=== PATIENT | male | born 1960 | race Caucasian/White ===

== ENCOUNTER → 2020-09-07 11:39 | Outpatient (BNVA) | payer MEDICAID, SELFPAY | PROVIDERS: Visit Provider Family Medicine | DX: R41.3 Other amnesia (principal); F63.81 Intermittent explosive disorder; F41.9 Anxiety disorder, unspecified; F20.0 Paranoid schizophrenia; F32.9 Major depressive disorder, single episode, unspecified | CPT/HCPCS: 80053; 80061; 82607; 82746; 83735; 84443; 85025; 86592 ==

== ENCOUNTER 2022-04-20 10:47 | Outpatient (CLI) | payer MEDICAID, SELFPAY ==
--- NOTE | 2022-04-20 10:45 | CT_ITS ---
WS: [id number] LDCT LUNG CANCER SCREENING TECHNIQUE: Noncontrast CT of the chest with coronal and sagittal reformatted images. CLINICAL INFORMATION: Z12.2 - Encounter for screening for malignant neoplasm of.. COMPARISON: None. DLP: 80.21 mGy.cm DIvol: Mean CTDIvol: 1.60 (mGy) All CT scans at [facility] use at least one of these dose optimization techniques: automat ed exposure control; mA and/or kV adjustment per patient size (includes targeted exams where dose is matched to clinical indication); or iterative reconstruction. FINDINGS: Mild chronic emphysematous changes. Noncalcified subpleural opacity RIGHT upper lobe measur ing 5 mm. Noncalcified nodule RIGHT upper lobe measuring 3 mm. A few additional 4 to 5 mm noncalcifie d nodules RIGHT lower lobe laterally. Calcified granuloma LEFT lower lobe. Hazy airspace opacity in the RIGHT lower lobe superior segment posteriorly measuring 2.8 x 2.6 cm. Th is may be infectious or inflammatory in etiology but neoplasm is an additional consideration. Recomme nd short-term interval follow-up after treatment and if persistent consider further evaluation with P ET/CT or CT-guided biopsy. Normal caliber thoracic aorta. Mild aortic calcification. No mediastinal or hilar lymphadenopathy. Ca lcified LEFT hilar lymph nodes. Coronary calcification. No axillary lymphadenopathy. Adrenal glands are normal. Normal GE junction. Mild thoracic kyphosis. M ild disc space narrowing in the thoracic spine. CT/CT lung screening [id number] IMPRESSION:Hazy airspace opacity in the RIGHT lower lobe superior segment poste riorly measuring 2.8 x 2.6 cm. This may be infectious or inflammatory in etiolo gy but neoplasm is an additional consideration. Recommend short-term interval f ollow-up after treatment and if persistent consider further evaluation with PET /CT or CT-guided biopsy. LUNG-RADS: 4B-Suspicious FOLLOW UP: 1 Month LDCT
== END 2022-04-20 10:48 | disposition home or self-care (01) ==
PROVIDERS: PCP Family Medicine; Visit Provider Family Medicine
DX: Z12.2 Encounter for screening for malignant neoplasm of respiratory organs (principal); F17.210 Nicotine dependence, cigarettes, uncomplicated
CPT/HCPCS: 71271

== ENCOUNTER → 2022-06-21 15:22 | Outpatient (BNVA) | payer MEDICAID, SELFPAY | PROVIDERS: PCP Family Medicine; Visit Provider Nurse Practitioner | DX: N39.0 Urinary tract infection, site not specified (principal); F17.200 Nicotine dependence, unspecified, uncomplicated | CPT/HCPCS: 87077; 87086; 87184 ==

== ENCOUNTER 2022-07-18 17:28 | Outpatient (CLI) | payer MEDICAID, SELFPAY ==
--- NOTE | 2022-07-18 17:00 | CT_ITS ---
WS: [id number] CT CHEST TECHNIQUE: Noncontrast CT of the chest with coronal and sagittal reformatted images. CLINICAL INFORMATION: R91.8 - Other nonspecific abnormal finding of lung field COMPARISON: CT lung screening April 20, 2022 DLP: 564.[address] scans at [facility] use at least one of these dose optimization techniques: automated e xposure control; mA and/or kV adjustment per patient size (includes targeted exams where dose is matc hed to clinical indication); or iterative reconstruction. FINDINGS: Previously described patchy airspace opacity in RIGHT lower lobe has resolved compared to April 20 compatible with resolved infectious or inflammatory etiology. No focal pneumonia or pleural fluid today. Lungs well aerated. A few calcified granulomas. Normal caliber thoracic aorta. Mild aortic jaden cification. Coronary calcification. No mediastinal or hilar lymphadenopathy. No axillary lymphadenopa thy. A few tiny noncalcified 3 to 4 mm parenchymal and subpleural nodules in the RIGHT upper lobe, RIGHT l ower lobe, LEFT lower lobe stable compared to previous. Recommend 12 month follow-up. Adrenal glands are normal. Normal GE junction. Mild thoracic kyphosis. Chronic anterior wedging in th e mid thoracic spine. No other suspicious findings. CT/CT chest wo con [id number] IMPRESSION: 1. Interval resolution of previously described airspace opacity RIGHT lower lo be consistent with resolved infectious or inflammatory etiology. 2. No focal pneumonia or pleural fluid. 3. A few tiny subcentimeter noncalcified pulmonary nodules and subpleural pulm onary nodules appear stable since the prior CT. Recommend 12 month follow-up.
== END 2022-07-18 17:29 | disposition home or self-care (01) ==
LOC: RAD 17:29
PROVIDERS: PCP Family Medicine; Visit Provider Family Medicine
DX: R91.8 Other nonspecific abnormal finding of lung field (principal)
CPT/HCPCS: 71250

== ENCOUNTER → 2022-08-23 16:27 | Outpatient (BNVA) | payer MEDICAID, SELFPAY | PROVIDERS: PCP Family Medicine; Visit Provider Family Medicine | DX: Z87.440 Personal history of urinary (tract) infections (principal); R91.8 Other nonspecific abnormal finding of lung field | CPT/HCPCS: 80053; 80061; 81000; 83036; 84443; 85025; 86140; 86160; 86162; 86235; 86255; 86376; 87077; 87086; 87184; G0103 ==

== ENCOUNTER → 2022-10-13 14:40 | Outpatient (BNVA) | payer MEDICAID, SELFPAY | PROVIDERS: PCP Family Medicine; Visit Provider Internal Medicine Pulmonary Disease | DX: R91.8 Other nonspecific abnormal finding of lung field (principal); F17.210 Nicotine dependence, cigarettes, uncomplicated; R06.2 Wheezing | CPT/HCPCS: 99214 ==

== ENCOUNTER → 2022-12-09 09:58 | Outpatient (BNVA) | payer MEDICAID, SELFPAY | PROVIDERS: PCP Family Medicine; Visit Provider Urology | DX: N40.1 Benign prostatic hyperplasia with lower urinary tract symptoms (principal); N39.0 Urinary tract infection, site not specified | CPT/HCPCS: 51798; 52000; 87077; 87086; 87186; 99204 ==

== ENCOUNTER 2023-04-03 10:59 | Outpatient (CLI) | payer MEDICAID, SELFPAY ==
[2023-04-03 11:45] LABS: Prostate Specific AG Urology 2.14 ng/mL (0-4)
== END 2023-04-03 11:00 | disposition home or self-care (01) ==
PROVIDERS: PCP Family Medicine; Visit Provider Urology
DX: R97.20 Elevated prostate specific antigen [PSA] (principal); N40.0 Benign prostatic hyperplasia without lower urinary tract symptoms; N39.0 Urinary tract infection, site not specified; F20.0 Paranoid schizophrenia
CPT/HCPCS: 36415; 51741; 51798; 81003; 84153; 99213

== ENCOUNTER 2023-08-25 14:16 | Outpatient (CLI) | payer MEDICARE, MEDICAID, SELFPAY ==
--- NOTE | 2023-08-25 | CT_ITS ---
WS: [id number] LDCT LUNG CANCER SCREENING HISTORY: lung screening TECHNIQUE: Axial imaging performed from the apices to 1 cm below the costophrenic angles. Coronal and sagittal reformats are submitted with axial MIP series. All CT scans at [facility] use at least one of these dose optimization techniques: automated exposure control; mA and/or kV adjustment per patient size (includes targeted exams where dose is matched to clinical indication); or iterativ e reconstruction. DLP: 54.01 mGy.cm DIvol: Mean CTDIvol: 1.00 (mGy) COMPARISON: 07/18/2022 Diagnostic quality: Satisfactory Lungs: There are a few small micronodules bilaterally. Mild interstitial thickening. No mass or nodul e greater than 3 mm. Benign granuloma LEFT upper lobe. No endobronchial lesions. Heart: Normal size heart with no pericardial effusion.. Other findings: Calcified LEFT hilar lymph nodes. No mediastinal or hilar adenopathy. Mild atheroscle rosis aorta. Small hiatal hernia. Mild increase in thoracic kyphosis. Mild anterior wedging in the mi dthoracic spine. IMPRESSION: CT/CT lung screening [id number] LUNG-RADS: 2-Benign Appearance or Behavior FOLLOW UP: 12 Month: Continue annual screening with LDCT OTHER FINDINGS (S MODIFIER): None.
== END 2023-08-25 14:17 | disposition home or self-care (01) ==
LOC: RAD 14:18
PROVIDERS: PCP Family Medicine; Visit Provider Internal Medicine Pulmonary Disease
DX: Z12.2 Encounter for screening for malignant neoplasm of respiratory organs (principal); F17.210 Nicotine dependence, cigarettes, uncomplicated
CPT/HCPCS: 71271

== ENCOUNTER 2023-11-04 16:50 | Emergency (ER) | payer MEDICARE, MEDICAID, SELFPAY ==
[2023-11-04 16:55] VITALS: BP 131/72; PULSE 71; RESP 15; O2SAT 100
--- NOTE | 2023-11-04 17:46 | ED_ITS ---
HPI - Eye Problem General: Chief complaint: Eye Problems Stated complaint: urgent care sent, right eye issue Time Seen by Provider: 11/04/23 17:21 Source: patient Mode of arrival: ambulatory Limitations: no limitations History of Present Illness: Patient presents emergency department today for evaluation and treatment of right eye redness, tearing, and headache. Patient was sent by urgent care for w hat I assume is his complaint of pain however as patient has no redness or swelling around the orbit and patient's pain is located between his eyes and his forehead and in his maxillary sinuses I am not concerned about orbital, cellulitis erysipelas, etc. today. Patient states he has had a lot of congestion recently and has had increased sinus pressure. Over the last 3 days he has developed redness to his right eye. 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 He denies matting of the lashes. He also denies any fevers, sore throat, or vesicular rash formation. He denies any foreign body sensation in the eye. Review of Systems General: Reports: 10 or more systems reviewed and unremarkable except in HPI and below PFSH ED PFSH: Medical History BPH loc w urin obs/LUTS Family history of coronary artery disease Brain aneurysm Surgical History Status post brain surgery Family History Father , AT AGE 86 Stroke Mother , AT AGE 82 No problems noted. Other CAD (coronary artery disease) Cancer Diabetes Hyperlipidemia Hypertension Social History Smoking and tobacco/nicotine status: current some day tobacco/nicotine user cigarettes Packs smoked per day: 2 Years cigarettes smoked: 48 [ Other cigarette details: started at age 14] Alcohol intake: current Alcohol intake frequency: holidays/special occasions only Substance/Drug Use: current Marital status: Current occupational status: disabled Physical Exam Const: COMMON NORMALS: no acute distress, patient oriented x3 and alert OTHER: Patient is pleasant, social. Answers his own history. HENMT: OTHER: Nasal passages are erythematous and boggy bilaterally. Patient is tender along the maxillary sinuses as well as the frontal sinuses when palpated. Patient has bilateral allergic shiners. Eye: COMMON NORMALS: EOMs intact bilaterally OTHER: Patient with moderately injected conjunctive on the right side. Patient with active clear tearing but no signs of any matting or accumulation. Patient has a very minimal edema of the right upper eyelid with very minimal redness. Patient has no orbital cellulitis or swelling. EOMs are intact. No signs of any foreign body on the cornea or in the upper or lower lids. No signs of internal stye. No external stye. Neck/C-Spine: COMMON NORMALS: no JVD Lymph: LYMPHATIC: no lymphadenopathy noted Resp: COMMON NORMALS: normal respiratory effort, No retractions and No use of accessory muscles Cardio: COMMON NORMALS: no JVD and regular rate RATE: regular rate : COMMON NORMALS: Yes no CVA tenderness BLADDER/KIDNEY EXAM: Yes no CVA tenderness Back/Pelvis: COMMON NORMALS: no CVA tenderness, thoracic and lumbar spine normal to inspection and thoraco-lumbar ROM normal Extremity: COMMON NORMALS: normal to inspection, full ROM and no pedal edema Neuro: COMMON NORMALS: patient oriented x3 SENSORIUM/ORIENTATION: Yes alert Skin: COMMON NORMALS: no rashes or lesions noted and turgor normal GENERAL SKIN EXAM: no rashes or lesions noted and turgor normal Course Vital Signs: Vital signs: Vital Signs Pulse Rate 71 11/04/23 18:19 Respiratory Rate 15 11/04/23 18:19 Blood Pressure 131/72 11/04/23 18:19 Pulse Oximetry 100 11/04/23 18:19 Oxygen Delivery Me thod Room Air 11/04/23 16:55 MDM - Eye Problem Medical Decision Making Patient's examination today is consistent with a frontal and maxillary sinusiti s. Patient also has findings of a right-sided conjunctivitis. Patient reports chronic vision loss as a baby in the right eye. He shows no signs of an orbital cellulitis or erysipelas. We will treat patient with doxycycline for sinusitis and ciprofloxacin drops for the eye. Doxy will also give a skin coverage just in case. Went over return precautions and recommended a follow-up appoint with primary care next week for general recheck. Patient verbalizes understanding and agreement to treatment plan. Differential Diagnosis Likely conjunctivitis; Unlikely corneal abrasion, acute iritis, hyphema, periorbital cellulitis, subconjunctival hemorrhage, glaucoma, corneal ulcer or ruptured globe No radiology studies performed this visit Discharge Plan Discharge Patient Disposition: Home Clinical Impression: Sinusitis, Acute conjunctivitis, right eye Condition: Stable Prescriptions: New doxycycline hyclate 100 mg tablet 100 mg PO BID 10 Days Qty: 20 0RF ciprofloxacin HCl 0.3 % drops See Rx Instructions ophthalmic (eye) .COMPLEX Qty: 5 0RF Rx Instructions: put 1-2 drps in affected eye(s) every 2hr up to 8 times/day x2days; then 4 times/day x5days No Action albuterol sulfate 90 mcg/actuation HFA aerosol inhaler 1 inh INHALATION QID PRN (Reason: shortness of breath or wheezing) Qty: 18 0RF multivitamin Capsule 1 cap PO DAILY aspirin 81 mg tablet,delayed release (DR/EC) 81 mg PO DAILY 90 Days Qty: 90 1RF Spiriva with HandiHaler 18 mcg capsule, w/inhalation device 1 cap inhalation DAILY Qty: 30 3RF Rx Instructions: puncture 1 cap using device; one dose = 2 inhalations tamsulosin 0.4 mg capsule 0.4 mg PO .Twice daily Qty: 180 3RF finasteride 5 mg tablet 5 mg PO QDAY Qty: 90 3RF mupirocin 2 % ointment 1 applic topical BID 7 Days Qty: 22 0RF donepezil 10 mg tablet See Rx Instructions .ROUTE .COMPLEX Qty: 90 1RF Dose Instruction: TAKE 1 TABLET BY MOUTH DAILY Rx Instructions: TAKE 1 TABLET BY MOUTH DAILY fluoxetine 20 mg capsule See Rx Instructions .ROUTE .COMPLEX Qty: 30 0RF Dose Instruction: TAKE 1 CAPSULE BY MOUTH DAILY Rx Instructions: TAKE 1 CAPSULE BY MOUTH DAILY PT MUST MAKE AN APPOINTMENT FOR ADDITIONAL REFILLS. atorvastatin 20 mg tablet See Rx Instructions .ROUTE .COMPLEX Qty: 90 0RF Dose Instruction: TAKE 1 TABLET BY MOUTH DAILY Rx Instructions: TAKE 1 TABLET BY MOUTH DAILY Discharge Orders: Discharge ED (Routine); Ordered 11/04/23 Ordered By: Ana Ng Referrals: Robert Shine MD [Primary Care Provider] - Discharge Diet: Usual diet Discharge Activity: Increase activity as tolerated Patient Instructions: Conjunctivitis (ED), Sinusitis - Acute Activity Restrictions/Additional Instructions: Examination today seems consistent with maxillary and frontal sinus infections. I also think this is causing issues with your right eye as you do have signs of conjunctivitis. Unfortunately, treatment of 1 does not treat the other so, you will get eyedrops for your eye and an oral antibiotic for your sinus infection. We provided first doses here in the emergency department. If you are able to continue your treatment with your eyedrops without running out, that is fine but, if you run out of eyedrops before your treatment course is completed I have also sent a refill to the pharmacy to be picked up as needed. Put 1 to 2 drops in your right eye every 2 hours-up to 8 times a day, for 2 days. After that, apply 1 to 2 drops 4 times a day for 5 more days. Follow-up with primary care next week for general recheck if needed. Watch for any redness or swelling around your eye, fever, or severe right-sided headache. If any of these occur you need to be seen and reevaluated. Coding Level of Care Code ED Managed Care Analyst for [facility] Nunez
[2023-11-04] MEDS: doxycycline 100 mg Tablet PO (18:07)
[2023-11-04] MEDS: ciprofloxacin 0.3% Op Soln 2.5 mL Btl 1 DROP EYE-RIGHT (18:07)
[2023-11-04 18:19] VITALS: BP 131/72; PULSE 71; RESP 15; O2SAT 100
== END 2023-11-04 18:20 | disposition home or self-care (01) ==
PROVIDERS: Emergency Provider Physician Assistant; PCP Family Medicine
DX: J32.9 Chronic sinusitis, unspecified (principal); H10.31 Unspecified acute conjunctivitis, right eye; Z79.82 Long term (current) use of aspirin; Z72.0 Tobacco use
CPT/HCPCS: 99283

== ENCOUNTER → 2023-11-09 13:06 | Outpatient (BNVA) | payer MEDICARE, MEDICAID, SELFPAY | PROVIDERS: PCP Family Medicine; Visit Provider Nurse Practitioner Family | DX: R35.0 Frequency of micturition (principal); N13.9 Obstructive and reflux uropathy, unspecified; N40.1 Benign prostatic hyperplasia with lower urinary tract symptoms; N39.0 Urinary tract infection, site not specified; Z79.899 Other long term (current) drug therapy; Z13.6 Encounter for screening for cardiovascular disorders; Z12.5 Encounter for screening for malignant neoplasm of prostate; R31.9 Hematuria, unspecified | CPT/HCPCS: 80053; 80061; 81000; 81003; 83036; 84443; 85025; 87077; 87086; 87184; G0103 ==

== ENCOUNTER → 2024-09-05 13:26 | Outpatient (BNVA) | payer MEDICARE, MEDICAID, SELFPAY | PROVIDERS: PCP Nurse Practitioner Family; Referring Provider Nurse Practitioner Family; Visit Provider Nurse Practitioner Family | DX: Z13.6 Encounter for screening for cardiovascular disorders (principal); Z79.899 Other long term (current) drug therapy; E78.5 Hyperlipidemia, unspecified; Z12.5 Encounter for screening for malignant neoplasm of prostate; F41.9 Anxiety disorder, unspecified; F32.9 Major depressive disorder, single episode, unspecified | CPT/HCPCS: 80053; 80061; 81003; 82306; 83036; 84443; 85025; 87077; 87086; 87184; G0103 ==

== ENCOUNTER → 2024-11-20 14:28 | Outpatient (BNVA) | payer MEDICARE, MEDICAID, SELFPAY | PROVIDERS: PCP Nurse Practitioner Family; Referring Provider Nurse Practitioner Family; Visit Provider Nurse Practitioner Family | DX: L60.3 Nail dystrophy (principal); D22.5 Melanocytic nevi of trunk; L81.8 Other specified disorders of pigmentation; L57.8 Other skin changes due to chronic exposure to nonionizing radiation; D48.5 Neoplasm of uncertain behavior of skin; L57.0 Actinic keratosis | CPT/HCPCS: 11102; 17000; 99203 ==

== ENCOUNTER → 2025-01-06 15:18 | Outpatient (BNVA) | payer MEDICARE, MEDICAID, SELFPAY | PROVIDERS: PCP Nurse Practitioner Family; Visit Provider Dermatology | DX: L60.3 Nail dystrophy (principal); S60.511A Abrasion of right hand, initial encounter; X58.XXXA Exposure to other specified factors, initial encounter | CPT/HCPCS: 99213 ==

== ENCOUNTER → 2025-02-03 14:27 | Outpatient (BNVA) | payer MEDICARE, MEDICAID, SELFPAY | PROVIDERS: PCP Nurse Practitioner Family; Visit Provider Dermatology | DX: L60.9 Nail disorder, unspecified (principal) | CPT/HCPCS: 11730; 11755 ==

== ENCOUNTER → 2025-02-17 13:28 | Outpatient (BNVA) | payer MEDICARE, MEDICAID, SELFPAY | PROVIDERS: PCP Nurse Practitioner Family; Visit Provider Dermatology | DX: L60.3 Nail dystrophy (principal) | CPT/HCPCS: 99214 ==

== ENCOUNTER → 2025-09-18 15:59 | Outpatient (BNVA) | payer MEDICARE, MEDICAID, SELFPAY | PROVIDERS: PCP Nurse Practitioner Family; Visit Provider Nurse Practitioner Family | DX: E55.9 Vitamin D deficiency, unspecified (principal); E78.5 Hyperlipidemia, unspecified; N40.1 Benign prostatic hyperplasia with lower urinary tract symptoms; R35.1 Nocturia; Z79.899 Other long term (current) drug therapy; F32.9 Major depressive disorder, single episode, unspecified; F41.9 Anxiety disorder, unspecified; Z12.5 Encounter for screening for malignant neoplasm of prostate | CPT/HCPCS: 80053; 80061; 81003; 82306; 83036; 83735; 84443; 85025; 87086; G0103 ==